=== PATIENT | female | born 1960 | race Caucasian/White ===

== ENCOUNTER 2016-05-06 14:33 | Emergency (ER) | payer BC ==
[2016-05-06 14:44] VITALS: BP 149/88
--- NOTE | 2016-05-06 14:56 | UC ---
Ear Complaint HPI - HPI Summary HPI Summary: The patient comes in today for: 1. Right ear pain: Onset: 4 weeks ago. Palliative/provocative: Heat helped. Quality: Dull, throbbing and sharp at times. Region: Right ear. Severity: 7/10 Time: Constant. Associated symptoms: Event: She states that her "cold" is productive of yellow material and rhinitis--green. Sinus pressure: Present. Fever: NOne. Upper tooth pain: None. Treatment: OTC Sinus Rx and ear drops. Not effective. Ibuprofen taken and not helpful. Tinnitus: Present "low grade." Hearing: "decreased somewhat." * - History of Current Complaint Chief Complaint: UCEar Stated Complaint: RIGHT EAR PAIN Time Seen by Provider: 05/06/16 14:46 Hx Obtained From: Patient Hx Last Menstrual Period: presently ?: No - Allergies/Home Medications Allergies/Adverse Reactions: Allergies Allergy/AdvReac Type Severity Reaction Status Date / Time No Known Allergies Allergy Verified 05/06/16 14:44 PMH/Surg Hx/FS Hx/Imm Hx Previously Healthy: No - Osteoporosis. Endocrine History Of: Denies: Diabetes, Thyroid Disease, Hyperthyroidism, Hypothyroidism, Dyslipidemia Cardiovascular History Of: Denies: Cardiac Disorders, Hypertension, Pacemaker/ICD, Myocardial Infarction , Congestive Heart Failure, Atrial Fibrillation, Deep Vein Thrombosis, Bleeding Disorders Respiratory History Of: Denies: COPD, Asthma, Bronchitis, Pneumonia, Pulmonary Embolism GI/ History Of: Reports: Gastroesophageal Reflux Denies: Ulcer, Gastrointestinal Bleed, Gall Bladder Disease, Kidney Stones, Diverticulitis, Renal Disease, Urosepsis Neurological History Of: Denies: TIA, CVA, Dementia, Seizures, Migraine Psychological History Of: Reports: Anxiety, Depression - ON DAILY EFFEXOR Denies: Bipolar Disorder, Schizophrenia, Post Traumatic Stress Disorder Cancer History Of: Denies: Lung Cancer, Colorectal Cancer, Breast Cancer, Prostate Cancer, Cervical Cancer Other History Of: Negative For: HIV, Hepatitis B, Hepatitis C, Anticoagulant Therapy - Surgical History Surgical History: None Surgery Procedure, Year, and Place: R ankle - Family History Known Family History: Negative: Cardiac Disease, Diabetes - Social History Occupation: Retired Alcohol Use: Occasionally Substance Use Type: None Smoking Status (MU): Former Smoker Length of Time of Smoking/Using Tobacco: approx 2 yrs Have You Smoked in the Last Year: No When Did the Patient Quit Smoking/Using Tobacco: 2004 Review of Systems Constitutional: Negative Skin: Negative Eyes: Negative ENT: Nasal Discharge Respiratory: Other Cardiovascular: Negative Gastrointestinal: Negative Genitourinary: Negative All Other Systems Reviewed And Are Negative: Yes Physical Exam Triage Information Reviewed: Yes Appearance: Well-Appearing, No Pain Distress, Well-Nourished Vital Signs: Initial Vital Signs Temp 98.9 F 05/06/16 14:41 Pulse 83 05/06/16 14:41 Resp 16 05/06/16 14:41 BP 149/88 05/06/16 14:41 Pulse Ox 100 05/06/16 14:41 Vital Signs Reviewed: Yes Eyes: Positive: Conjunctiva Clear. Negative: Discharge ENT: Positive: Hearing grossly normal, Pharyngeal erythema, Other: - Left ear: TM was mercer and translucent. Right: Cerumen impaction.. Negative: Nasal congestion, Nasal drainage, Tonsillar swelling, Tonsillar exudate Neck: Positive: Supple, Nontender, Other: - There was a mass sensation below the posterior mandible on the left. It was non-tender.. Negative: Nuchal Rigidity Respiratory: Positive: Chest non-tender, Lungs clear, No respiratory distress, No accessory muscle use. Negative: Crackles, Wheezing Cardiovascular: Positive: RRR, No Murmur Abdomen Description: Positive: Nontender, No Organomegaly, Soft. Negative: Distended, Guarding Musculoskeletal: Positive: Strength Intact, ROM Intact, No Edema Neurological: Positive: Alert, Muscle Tone Normal Psychological: Positive: Age Appropriate Behavior, Consolable Skin: Negative: rashes, breakdown Ear Complaint Course/Dx - Course Course Of Treatment: The patient had her right ear canal irritated. There was a red canal, but free of edema. There was a TM on the right which was red with opaque fluid behind the TM which was bulging. - Differential Dx/Diagnosis Provider Diagnoses: High blood pressure. Left neck mass. Right ear pain. Cerumen impaction Discharge - Discharge Plan Condition: Stable Disposition: HOME Patient Education Materials: Otitis Media (ED), Otitis Externa (ED) Referrals: Roman Byrd MD [Primary Care Provider] - 1 Week (Please see your primary care provider in about a week to see how well you are doing. If you get worse, please be seen sooner.) Additional Instructions: Please see your primary care provider in 1-2 weeks to see how well your ear infection is doing. Also see your doctor for evaluation of your blood pressure and left, submandibular swelling.
== END 2016-05-06 15:25 | disposition home or self-care (01) ==
LOC: UCCORT 14:33
DX: H92.01 Otalgia, right ear (principal); H61.21 Impacted cerumen, right ear; R22.1 Localized swelling, mass and lump, neck; R03.0 Elevated blood-pressure reading, without diagnosis of hypertension; Z87.891 Personal history of nicotine dependence
CPT/HCPCS: 99212; G0463